=== PATIENT | female | born 1985 | race Hispanic/Latino ===

== ENCOUNTER 2019-04-19 11:15 | Inpatient (IN) ==
[2019-04-19] MEDS ORDERED: TYLENOL PO PRN (11:34)
[2019-04-19] MEDS ORDERED: PEPCID IV PRN (11:34)
[2019-04-19] MEDS ORDERED: KEFZOL 1 GM/D5W 1 GM/50 ML IVPB IV PRN (11:34)
[2019-04-19] MEDS ORDERED: PEPCID PO ONE (11:34)
[2019-04-19] MEDS ORDERED: PEPCID PO PRN (11:34)
[2019-04-19] MEDS ORDERED: STADOL IV PRN (11:34)
[2019-04-19] MEDS ORDERED: REGLAN PO ONE (11:34)
[2019-04-19] MEDS ORDERED: AMPICILLIN 2 GM/NS 2 GM/100 ML IVPB IV ONE (11:34)
[2019-04-19] MEDS ORDERED: ZOFRAN IV PRN (11:34)
[2019-04-19] MEDS ORDERED: SODIUM CHLORIDE 0.9% INJ SCH (11:45)
[2019-04-19] MEDS ORDERED: LR 1,000 ML IV SCH (11:45)
[2019-04-19] MEDS ORDERED: PITOCIN 30 UNITS/NS 30 UNIT/500 ML IV.SOLN IV SCH ×2 (11:45→13:15)
[2019-04-19] MEDS ORDERED: XYLOCAINE-MPF 1% INJ PRN ×2 (11:51→13:03)
[2019-04-19] MEDS ORDERED: MINERAL OIL PO PRN ×2 (11:52→13:03)
[2019-04-19 12:56] LABS: BASO# 0.02 X1000 (0.0-0.2); BASO% 0.2 % (0.0-0.8); EOS# 0.41 X1000 (0.0-0.7); EOS% 3.2 % (0.0-10.0); HEMATOCRIT 38.8 % (37.0-47.0); HEMOGLOBIN 13.1 g/dL (12.0-16.0); IMM GRAN# 0.03 X1000 (0.0-0.04); IMM GRAN% 0.2 % (0.0-0.5); LYMPH% 13.9 % (20.5-51.1); MCH 29.2 PG (27-31); MCHC 33.8 g/dL (33-37); MCV 86.6 FL (81-99); MONO# 0.72 X1000 (0.11-0.59); MONO% 5.6 % (1.7-9.3); NEUT# 9.98 X1000 (1.4-6.5); NEUT% 76.9 % (42.2-75.2); PLT 288 X1000 (130-400); RBC 4.48 XMIL (4.2-5.4); RDW 13.5 % (11.5-14.5); WBC 12.96 X1000 (4.8-10.8)
[2019-04-19] MEDS ORDERED: M-M-R II VACCINE SUBQ ONE (13:03)
[2019-04-19] MEDS ORDERED: HYDROXYZINE IM PRN (13:03)
[2019-04-19] MEDS ORDERED: PITOCIN IM PRN (13:03)
[2019-04-19] MEDS ORDERED: CYTOTEC PO PRN (13:03)
[2019-04-19] MEDS ORDERED: BENADRYL PO PRN (13:03)
[2019-04-19] MEDS ORDERED: AMBIEN PO PRN (13:03)
[2019-04-19] MEDS ORDERED: ATARAX PO PRN (13:03)
[2019-04-19] MEDS ORDERED: BENADRYL IV PRN (13:03)
[2019-04-19] MEDS ORDERED: BOOSTRIX VACCINE IM ONE (13:03)
[2019-04-19] MEDS ORDERED: PERI MEDS (DERMOPLAST/NUPERCAINAL/TUCKS) MISC PRN (13:03)
[2019-04-19] MEDS ORDERED: PITOCIN 20 UNITS/NS 20 UNITS/1,000 ML IV.SOLN IV SCH (13:15)
[2019-04-19] MEDS: MOTRIN PO PRN (13:17)
[2019-04-19 13:33] LABS: RAPID HIV PRESUMPTIVE NEGATIVE; RPR NON-REACTIVE (NONREACTIVE)
--- NOTE | 2019-04-19 14:01 | HISTORY AND PHYSICAL ---
Pao is a 33-year-old, 4, para 3 with 3 vaginal deliveries in the past, who presents to the Labor and Delivery suite at term with no care. She presented with advanced cervical dilatation at 9 cm with intact membranes and a category 1 tracing. The patient does not speak any Nepali. Her speaks a little german. PREVIOUS MEDICAL HISTORY: Negative. PREVIOUS SURGICAL HISTORY: Negative. OB HISTORY: Is pertinent for 3 vaginal deliveries in the past at full-term. INORGANIC CHEMIST HISTORY: Unknown. MEDICINES: vitamins. ALLERGIES: To medicines none. PHYSICAL EXAM: This is a well-developed, well-nourished, gravid woman appearing stated age. HEENT: Grossly normal. Poor dentition. LUNGS: Unlabored breathing. HEART: Regular rate and rhythm. ABDOMEN: Gravid to below the xiphoid. EXTREMITIES: Without clubbing, cyanosis, or edema. PELVIC: As above. ASSESSMENT: A 33-year-old 4, para 3, active phase of labor and advanced cervical dilatation at appearing term. PLAN: Is dose of ampicillin for unknown dates, unknown GBS status and a normal spontaneous vaginal delivery. [facility]
[2019-04-19] MEDS ORDERED: AMPICILLIN 1 GM/NS 1 GM/50 ML IVPB IV SCH (15:35)
--- NOTE | 2019-04-19 15:38 | OPERATIVE NOTE ---
PROCEDURE DATE: 04/19/2019 PROCEDURE: Normal spontaneous vaginal delivery. PREOPERATIVE DIAGNOSES: 1. Multiparity. 2. Labor. 3. No care. 4. Advanced cervical dilatation. 5. Term . POSTOPERATIVE DIAGNOSES: 1. Multiparity. 2. Labor. 3. No care. 4. Advanced cervical dilatation. 5. Term . 6. Liveborn infant delivered via normal spontaneous vaginal delivery. DESCRIPTION OF PROCEDURE: The patient presented to Labor and Delivery with advanced cervical dilatation. Underwent spontaneous rupture of membranes and pushed for approximately 2 contractions. Delivered over a primary perineal laceration a liveborn , male, 7 pounds and 4 ounces, Apgars 8 and 9. The placenta delivered intact with a three-vessel cord after several minutes of 3rd stage and the perineum was repaired with a [id number] of 2-0 chromic. Post procedure, the perineum was intact and hemostatic. [facility]
[2019-04-19 17:12] LABS: URINE SOURCE VOIDED
[2019-04-19 17:17] LABS: BILIRUBIN URINE NEGATIVE (NEGATIVE); BLOOD URINE 4+ (NEGATIVE); CLARITY BLOODY (CLEAR); COLOR ORANGE; GLUCOSE URINE NEGATIVE (NEGATIVE); KETONE URINE TRACE mg/dL (NEGATIVE); LEUKOCYTES URINE 1+ (NEGATIVE); NITRITE URINE NEGATIVE (NEGATIVE); PH URINE 6.5; PROTEIN URINE 1+(30 mg/dL) mg/dL (NEGATIVE); UROBILINOGEN URINE NORMAL
[2019-04-19 19:55] LABS: UR AMPHETAMINES QUAL NONE DETECTED (NONE DETECT); UR BARBITUATES QUAL NONE DETECTED (NONE DETECT); UR BENZODIAZEPIN QUAL NONE DETECTED (NONE DETECT); UR CANNABINOIDS QUAL NONE DETECTED (NONE DETECT); UR COCAINE QUAL NONE DETECTED (NONE DETECT); UR METHADONE QUAL NONE DETECTED (NONE DETECT); UR METHAMPHETAMINE QUAL NONE DETECTED (NONE DETECT); UR OPIATES QUAL NONE DETECTED (NONE DETECT); UR OXYCODONE QUAL NONE DETECTED (NONE DETECT); UR PCP QUAL NONE DETECTED (NONE DETECT); UR PROPOXYPHENE QUAL NONE DETECTED (NONE DETECT); UR TCA QUAL NONE DETECTED (NONE DETECT)
[2019-04-19] MEDS ORDERED: PERICOLACE PO SCH (21:00)
[2019-04-19 23:34] LABS: RUBELLA SCREEN IMMUNE (IMMUNE)
[2019-04-20 06:10] LABS: BASO# 0.02 X1000 (0.0-0.2); BASO% 0.2 % (0.0-0.8); EOS# 0.47 X1000 (0.0-0.7); EOS% 4.6 % (0.0-10.0); HEMATOCRIT 32.2 % (37.0-47.0); HEMOGLOBIN 10.7 g/dL (12.0-16.0); IMM GRAN# 0.02 X1000 (0.0-0.04); IMM GRAN% 0.2 % (0.0-0.5); LYMPH# 1.86 X1000 (1.2-3.4); LYMPH% 18.4 % (20.5-51.1); MCHC 33.2 g/dL (33-37); MCV 87.3 FL (81-99); MONO# 0.71 X1000 (0.11-0.59); MPV 10.7 FL (7.4-10.4); NEUT# 7.05 X1000 (1.4-6.5); NEUT% 69.6 % (42.2-75.2); PLT 243 X1000 (130-400); RBC 3.69 XMIL (4.2-5.4); RDW 13.4 % (11.5-14.5); WBC 10.13 X1000 (4.8-10.8)
--- NOTE | 2019-04-20 07:35 | OB/GYN PROGRESS NOTE ---
Progress Note OB - . Patient Problems: Current Active Problems Problem Status Onset Vaginal delivery Acute Non-[place]ozambican speaking patient Acute No care in current Acute Intrauterine Acute OB Progress Note: Vital Signs - 24 hr 04/19/19 11:20 04/19/19 15:00 04/19/19 19:00 Temperature 98.2 F 97.0 F L Pulse Rate 59 L 54 L 60 Respiratory Rate 24 18 18 Blood Pressure 125/75 115/68 114/54 O2 Sat by Pulse Oximetry 100 99 04/19/19 22:00 04/20/19 06:00 Temperature 96.8 F L 98.2 F Pulse Rate 55 L 59 L Respiratory Rate 18 18 Blood Pressure 124/58 103/51 O2 Sat by Pulse Oximetry Laboratory Results - last 24 hr 04/19/19 04/19/19 04/19/19 11:43 11:43 11:43 WBC 12.96 H RBC 4.48 Hgb 13.1 Hct 38.8 MCV 86.6 MCH 29.2 MCHC 33.8 RDW Std Deviation 13.5 Plt Count 288 MPV 11.0 H Immature Gran % (Auto) 0.2 Neut % (Auto) 76.9 H Lymph % (Auto) 13.9 L Emanuel % (Auto) 5.6 Eos % (Auto) 3.2 Baso % (Auto) 0.2 Immature Gran # (Auto) 0.03 Neut # (Auto) 9.98 H Lymph # (Auto) 1.80 Emanuel # (Auto) 0.72 H Eos # (Auto) 0.41 Baso # (Auto) 0.02 Glucose 86 Urine Source Urine Color Urine Clarity Urine pH Ur Specific [place]ndara Urine Protein Urine Ketones Urine Blood Urine Nitrite Urine Bilirubin Urine Urobilinogen Urine WBC Urine Glucose Urine Opiates Screen Ur Oxycodone Screen Urine Methadone Screen U Propoxyphene Qual Ur Barbituates Screen Ur Tricyclics Screen Ur Phencyclidine Scrn Ur Amphetamines Screen U Methamphetamines Scrn U Benzodiazepines Scrn Urine Cocaine Screen U Cannabinoids Screen RPR NON-REACTIVE HIV 1&2 Antibody Rapid PRESUMPTIVE NEGATIVE Rubella Immunity Screen IMMUNE Blood Type Antibody Screen 04/19/19 04/19/19 04/19/19 11:43 16:30 16:30 WBC RBC Hgb Hct MCV MCH MCHC RDW Std Deviation Plt Count MPV Immature Gran % (Auto) Neut % (Auto) Lymph % (Auto) Emanuel % (Auto) Eos % (Auto) Baso % (Auto) Immature Gran # (Auto) Neut # (Auto) Lymph # (Auto) Emanuel # (Auto) Eos # (Auto) Baso # (Auto) Glucose Urine Source VOIDED Urine Color ORANGE Urine Clarity BLOODY A Urine pH 6.5 Ur Specific [place] 1.010 Urine Protein 1+(30 mg/dL) A Urine Ketones TRACE Urine Blood 4+ Urine Nitrite NEGATIVE Urine Bilirubin NEGATIVE Urine Urobilinogen NORMAL Urine WBC 1+ A Urine Glucose NEGATIVE Urine Opiates Screen NONE DETECTED Ur Oxycodone Screen NONE DETECTED Urine Methadone Screen NONE DETECTED U Propoxyphene Qual NONE DETECTED Ur Barbituates Screen NONE DETECTED Ur Tricyclics Screen NONE DETECTED Ur Phencyclidine Scrn NONE DETECTED Ur Amphetamines Screen NONE DETECTED U Methamphetamines Scrn NONE DETECTED U Benzodiazepines Scrn NONE DETECTED Urine Cocaine Screen NONE DETECTED U Cannabinoids Screen NONE DETECTED RPR HIV 1&2 Antibody Rapid Rubella Immunity Screen Blood Type O POSITIVE Antibody Screen NEGATIVE 04/20/19 04:59 WBC 10.13 RBC 3.69 L Hgb 10.7 L D Hct 32.2 L MCV 87.3 MCH 29.0 MCHC 33.2 RDW Std Deviation 13.4 Plt Count 243 MPV 10.7 H Immature Gran % (Auto) 0.2 Neut % (Auto) 69.6 Lymph % (Auto) 18.4 L Emanuel % (Auto) 7.0 Eos % (Auto) 4.6 Baso % (Auto) 0.2 Immature Gran # (Auto) 0.02 Neut # (Auto) 7.05 H Lymph # (Auto) 1.86 Emanuel # (Auto) 0.71 H Eos # (Auto) 0.47 Baso # (Auto) 0.02 Glucose Urine Source Urine Color Urine Clarity Urine pH Ur Specific [place]nd[place] Urine Protein Urine Ketones Urine Blood Urine Nitrite Urine Bilirubin Urine Urobilinogen Urine WBC Urine Glucose Urine Opiates Screen Ur Oxycodone Screen Urine Methadone Screen U Propoxyphene Qual Ur Barbituates Screen Ur Tricyclics Screen Ur Phencyclidine Scrn Ur Amphetamines Screen U Methamphetamines Scrn U Benzodiazepines Scrn Urine Cocaine Screen U Cannabinoids Screen RPR HIV 1&2 Antibody Rapid Rubella Immunity Screen Blood Type Antibody Screen HPI: Pt seen and examined. Currently w/o complaints. Pain well controlled. Ambulating and urinating w/o difficulty. Tolerating regular diet, denies nausea or vomiting. +bottle feeding and decreased lochia. VS: please see above GEN: NAD CV: RRR, +S1S2 RESP: CTA b/l ABD: soft NTTP, FF at umbilicus EXT: neg CT LABS: please see above ASSESSMENT: 33yo PPD#1 s/p PLAN: -Continue routine PP care -plan for d/c home tomorrow
[2019-04-20] MEDS: MOTRIN PO PRN ×2 (11:28→20:20)
[2019-04-20 16:35] LABS: HIV ANTIBODY SCREEN SEE COMMENTS
[2019-04-21] MEDS: MOTRIN PO PRN (07:26)
[2019-04-21 07:29] VITALS: BP 105/57
--- NOTE | 2019-04-21 08:29 | OB/GYN PROGRESS NOTE ---
Progress Note OB - . Patient Problems: Current Active Problems Problem Status Onset Vaginal delivery Acute Non-Khmer speaking patient Acute No care in current Acute Intrauterine Acute OB Progress Note: Vital Signs - 24 hr 04/20/19 11:33 04/20/19 20:08 04/21/19 00:27 Temperature 97.5 F L 96.1 F L 96.1 F L Pulse Rate 64 62 58 L Respiratory Rate 14 18 18 Blood Pressure 92/50 94/45 89/45 O2 Sat by Pulse Oximetry 99 99 100 04/21/19 07:28 Temperature 97.8 F Pulse Rate 58 L Respiratory Rate 16 Blood Pressure 105/57 O2 Sat by Pulse Oximetry Laboratory Results - last 24 hr 04/19/19 13:33 HIV 1&2 Antibody Screen SEE COMMENTS 33 yo HF - Does not speak Khmer. [employer] used. C/o lower abd cramping that is helped with Motin. Ready to go home. No SOB, CP or leg pain. Baby is doing well. VSS AF Gen - Pt in no apparent distress A&O x 3 ABD - soft, NT, ND, FF Extrem - No CCE A/p PPD#2 D/c home f/u in 6 weeks
[2019-04-21 08:31] LABS: HEPATITIS B SURFACE ANTIGEN SEE COMMENTS
== END 2019-04-21 10:45 | disposition home or self-care (01) | DRG 807 ==
LOC: P.OPLD 11:15 → P.LD 11:32
PROVIDERS: ADMIT Obstetrics & Gynecology; ATTEND Obstetrics & Gynecology